=== PATIENT | male | born 1960 | race Caucasian/White ===

== ENCOUNTER 2021-12-10 11:01 | Emergency (ER) | payer BC ==
[~2021-12-10] VITALS: Ht 182 cm; Wt 72.0 kg
--- NOTE | 2021-12-10 12:26 | ED Upper Extremity ---
General Chief Complaint: Upper Extremity Stated Complaint: R SHOULDER PAIN Nursing Triage Note: AMB TO TRIAGE WITH RIGHT UPPER CHEST AND SHOULDER PAIN STARTING ON WEDNESDAY AFTER LIFTING HIS . NOW STATES HE HURTS ALL OVER. Source: patient Exam Limitations: no limitations History of Present Illness Date Seen by Provider: December 10, 2021 Time Seen by Provider: 12:47 Allergies and Home Medications Allergies Coded Allergies: No Known Drug Allergies (Unverified , 12/10/21) Physical Exam Vital Signs Vital Signs - First Documented 12/10/21 11:24 Temp 36.3 Pulse 81 Resp 16 B/P (MAP) 157/89 (111) Pulse Ox 98 O2 Delivery Room Air Capillary Refill : Less Than 3 Seconds Height, Weight, BMI Height: '" Weight: lbs. oz. kg; 21.00 BMI Method: Progress/Results/Core Measures Results/Orders Lab Results Laboratory Tests Test 12/10/21 12:47 12/10/21 13:28 Range/Units White Blood Count 14.2 H 4.3-11.0 10^3/uL Red Blood Count 4.59 4.30-5.52 10^6/uL Hemoglobin 13.6 13.3-17.7 g/dL Hematocrit 39 L 40-54 % Mean Corpuscular Volume 85 80-99 fL Mean Corpuscular Hemoglobin 30 25-34 pg Mean Corpuscular Hemoglobin Concent 35 32-36 g/dL Red Cell Distribution Width 11.6 10.0-14.5 % Platelet Count 142 130-400 10^3/uL Mean Platelet Volume 11.1 9.0-12.2 fL Immature Granulocyte % (Auto) 1 % Neutrophils (%) (Auto) 88 H 42-75 % Lymphocytes (%) (Auto) 4 L 12-44 % Monocytes (%) (Auto) 8 0-12 % Eosinophils (%) (Auto) 0 0-10 % Basophils (%) (Auto) 0 0-10 % Neutrophils # (Auto) 12.5 H 1.8-7.8 10^3/uL Lymphocytes # (Auto) 0.6 L 1.0-4.0 10^3/uL Monocytes # (Auto) 1.1 H 0.0-1.0 10^3/uL Eosinophils # (Auto) 0.0 0.0-0.3 10^3/uL Basophils # (Auto) 0.0 0.0-0.1 10^3/uL Immature Granulocyte # (Auto) 0.1 0.0-0.1 10^3/uL Neutrophils % (Manual) 79 % Lymphocytes % (Manual) 2 % Monocytes % (Manual) 8 % Band Neutrophils 11 % Toxic Granulation 1+ Blood Morphology Comment NORMAL Erythrocyte Sedimentation Rate 73 H 0-30 MM/HR Sodium Level 127 L 135-145 MMOL/L Potassium Level 3.8 3.6-5.0 MMOL/L Chloride Level 89 L 98-107 MMOL/L Carbon Dioxide Level 22 21-32 MMOL/L Anion Gap 16 H 5-14 MMOL/L Blood Urea Nitrogen 41 H 7-18 MG/DL Creatinine 1.47 H 0.60-1.30 MG/DL Estimat Glomerular Filtration Rate 54 BUN/Creatinine Ratio 28 Glucose Level 318 H 70-105 MG/DL Calcium Level 9.2 8.5-10.1 MG/DL Corrected Calcium 9.6 8.5-10.1 MG/DL Total Bilirubin 1.1 H 0.1-1.0 MG/DL Aspartate Amino Transf (AST/SGOT) 20 5-34 U/L Alanine Aminotransferase (ALT/SGPT) 24 0-55 U/L Alkaline Phosphatase 86 40-136 U/L Total Protein 7.6 6.4-8.2 GM/DL Albumin 3.5 3.2-4.5 GM/DL Urine Color YELLOW Urine Clarity CLEAR Urine pH 5.5 5-9 Urine Specific [facility] >=1.030 1.016-1.022 Urine Protein 1+ H NEGATIVE Urine Glucose (UA) 3+ H NEGATIVE Urine Ketones 1+ H NEGATIVE Urine Nitrite NEGATIVE NEGATIVE Urine Bilirubin NEGATIVE NEGATIVE Urine Urobilinogen 1.0 < = 1.0 MG/DL Urine Leukocyte Esterase NEGATIVE NEGATIVE Urine RBC (Auto) 1+ H NEGATIVE Urine RBC 2-5 H /HPF Urine WBC 0-2 /HPF Urine Squamous Epithelial Cells 5-10 /HPF Urine Crystals PRESENT H /LPF Urine Amorphous Sediment MOD ERNESTO URATES H /LPF Urine Bacteria NEGATIVE /HPF Urine Casts PRESENT /LPF Urine Hyaline Casts 5-10 H /LPF Urine Granular Casts 5-10 H /LPF Urine Mucus NEGATIVE /LPF Urine Culture Indicated NO My Orders Orders - SHARON LA PUPPY WALKER Cbc With Automated Diff (12/10/21 12:33) Comprehensive Metabolic Panel (12/10/21 12:33) Ekg Tracing (12/10/21 12:33) Ua Culture If Indicated (12/10/21 12:33) Erythrocyte Sedimentation Rate (12/10/21 12:42) Manual Differential (12/10/21 12:47) Ed Iv/Invasive Line Start (12/10/21 13:22) Ns Iv 1000 Ml (Sodium Chloride 0.9%) (12/10/21 13:30) Ns Iv 1000 Ml (Sodium Chloride 0.9%) (12/10/21 14:00) Doxycycline Hyclate Tablet (Vibramycin T (12/10/21 14:15) Tick Panel With Lyme Eia (12/10/21 14:11) Medications Given in ED Current Medications Medications Dose Ordered Sig/Jenelle Route Start Time Stop Time Status Last Admin Dose Admin Doxycycline Hyclate 100 mg ONCE ONCE PO 12/10/21 14:15 12/10/21 14:16 DC 12/10/21 14:18 100 MG Sodium Chloride 1,000 ml @ 999 mls/hr ONCE ONCE IV 12/10/21 14:00 12/10/21 14:30 12/10/21 13:53 999 MLS/HR Vital Signs/I&O 12/10/21 12/10/21 11:24 13:55 Temp 36.3 Pulse 81 64 Resp 16 16 B/P (MAP) 157/89 (111) 125/74 Pulse Ox 98 99 O2 Delivery Room Air Blood Pressure Mean: 111 Departure Impression Primary Impression: Polyarthralgia Additional Impressions: SOSA (acute kidney injury) Hyperglycemia Disposition: 01 HOME, SELF-CARE Condition: Improved Departure-Patient Inst. Decision time for Depature: 14:21 Referrals: NO,LOCAL PHYSICIAN (PCP) Primary Care Physician WESLEY ZUNIGA (Family) Primary Care Physician Patient Instructions: Acute Kidney Injury Add. Discharge Instructions: Plan: 1. Take doxycycline twice a day as directed and complete full course. Avoid direct sunlight or sun exposure as this can cause severe sun burn. 2. Drink plenty of fluids to stay hydrated, you want your urine to be a light pale yellow. 3. Follow-up with Shannan Zuniga next week to have your renal function rechecked and for further evaluation of your elevated blood sugar. 4. We have ordered a tick panel test and we will have the results in a few days, you will be notified via telephone of the results if you are positive for any tick illness. 5. Return to the ER for any new, concerning, worsening symptoms. All discharge instructions reviewed with patient and/or family. Voiced understanding. Scripts Doxycycline Hyclate (Doxycycline Hyclate) 100 Mg Tablet 100 MG PO BID for 14 Days, #27 TAB Prov: SHARON LA APRN 12/10/21 SHARON LA APRN December 10, 2021 12:26
[2021-12-10 12:56] LABS: BASOPHILS % (AUTO) 0 % (0-10); EOSINOPHILS % (AUTO) 0 % (0-10); HEMATOCRIT 39 % (40-54); HEMOGLOBIN 13.6 g/dL (13.3-17.7); LYMPHOCYTES # (AUTO) 0.6 10^3/uL (1.0-4.0); LYMPHOCYTES % (AUTO) 4 % (12-44); MEAN CORPUSCULAR HEMOGLOBIN 30 pg (25-34); MEAN CORPUSCULAR HGB CONC 35 g/dL (32-36); MEAN CORPUSCULAR VOLUME 85 fL (80-99); MEAN PLATELET VOLUME 11.1 fL (9.0-12.2); MONOCYTES # (AUTO) 1.1 10^3/uL (0.0-1.0); MONOCYTES % (AUTO) 8 % (0-12); NEUTROPHILS # (AUTO) 12.5 10^3/uL (1.8-7.8); NEUTROPHILS % (AUTO) 88 % (42-75); PLATELET COUNT 142 10^3/uL (130-400); WHITE BLOOD COUNT 14.2 10^3/uL (4.3-11.0)
[2021-12-10 13:20] LABS: ALBUMIN 3.5 GM/DL (3.2-4.5); BILIRUBIN,TOTAL 1.1 MG/DL (0.1-1.0); CALCIUM 9.2 MG/DL (8.5-10.1); CREATININE SERUM 1.47 MG/DL (0.60-1.30); ERYTHROCYTE SEDIMENTATION RATE 73 MM/HR (0-30); POTASSIUM 3.8 MMOL/L (3.6-5.0); TOTAL PROTEIN 7.6 GM/DL (6.4-8.2)
[2021-12-10 13:28] LABS: BAND NEUTROPHILS 11 %; LYMPHOCYTES % (MANUAL) 2 %; MONOCYTES % (MANUAL) 8 %; NEUTROPHILS % (MANUAL) 79 %
[2021-12-10 13:29] LABS: RBC MORPH NORMAL; TOXIC GRANULATION/VACUOLAZATIO 1+
[2021-12-10] MEDS ORDERED: NS IV 1000 ML 1,000 ML IV ONE ×2 (13:30→14:00)
[2021-12-10 14:09] LABS: BACTERIA,URINE NEGATIVE /HPF; BILIRUBIN,URINE NEGATIVE (NEGATIVE); CLARITY,URINE CLEAR; COLOR,URINE YELLOW; GLUCOSE, URINE (UA) 3+ (NEGATIVE); KETONES,URINE 1+ (NEGATIVE); LEUKOCYTE ESTERASE ,URINE NEGATIVE (NEGATIVE); NITRITE,URINE NEGATIVE (NEGATIVE); PH,URINE 5.5 (5-9); PROTEIN,URINE 1+ (NEGATIVE); WBC,URINE 0-2 /HPF
[2021-12-10 14:10] LABS: AMORPHOUS SEDIMENT,UR MOD AMOR URATES /LPF
[2021-12-10] MEDS ORDERED: DOXYCYCLINE 100 MG (VIBRAMYCIN) TABLET PO ONE (14:15)
[2021-12-10] MEDS ORDERED: DOXY100T2 PO (14:24)
[2021-12-10 14:35] VITALS: BP 145/79
== END 2021-12-10 14:35 | disposition home or self-care (01) ==
LOC: ER 11:04
DX: M25.511 Pain in right shoulder (principal); R07.89 Other chest pain; N17.9 Acute kidney failure, unspecified; R73.9 Hyperglycemia, unspecified; X50.0XXA Overexertion from strenuous movement or load, initial encounter
CPT/HCPCS: 36415; 80053; 81000; 85007; 85027; 85652; 86618; 86666; 86668; 86757; 93005